=== PATIENT | female | born 1960 | race Caucasian/White ===

== ENCOUNTER 2024-01-27 14:41 | Outpatient (CLI) | payer BC | END 2024-01-27 14:42 | disposition home or self-care (01) | LOC: SCSRAD 14:41 | PROVIDERS: ATTEND Physician Assistant | DX: R05.3 Chronic cough (principal) | CPT/HCPCS: 71046 ==

== ENCOUNTER 2024-08-16 11:24 | Outpatient (CLI) | payer BC ==
[2024-08-16 13:09] LABS: #Basophils 0.05 10x3/uL (0.0-0.2); %Basophils 0.5 % (0.0-1.0); %Eosinophils 0.3 % (0.0-10.0); %Lymphocytes 20.1 % (21.0-51.0); %Monocytes 5.3 % (0.0-10.0); %Neutrophils 73.3 % (42.0-75.0); Hematocrit 42.8 % (36.0-47.0); Hemoglobin 14.6 g/dL (12.0-16.0); Mean Corpuscular HGB CONC 34.1 g/dL (32.0-36.0); Mean Corpuscular Hemoglobin 30.9 pg (27.0-31.0); Mean Corpuscular Volume 90.7 fL (78.0-98.0); Mean Platelet Volume 10.1 fL (7.4-10.4); Platelet Count 349 10x3/uL (130-400); RBC Distribution Width 12.5 % (11.5-14.5); Red Blood Cell (RBC) Count 4.72 mill/uL (4.20-5.40)
[2024-08-16 13:22] LABS: Hemoglobin A1c 6.7 % (4.0-6.0)
[2024-08-16 13:32] LABS: ALT (SGPT) 18 U/L (8-55); AST (SGOT) 18 U/L (5-34); Albumin 3.8 g/dL (3.4-4.8); Alkaline Phosphatase 124 U/L (40-110); Anion Gap 16 mmol/L (10-20); BUN (Urea Nitrogen) 16 mg/dL (9.8-20.1); Bilirubin, Total 0.5 mg/dL (0.2-1.2); Calc. Creatinine Clearance 0 mL/min (70-130); Calcium 10.2 mg/dL (7.8-10.44); Carbon Dioxide 26 mmol/L (23-31); Chloride 103 mmol/L (98-107); Estimated GFR 90; Globulin 3.8 g/dL (2.4-3.5); Glucose 162 mg/dL (80-115); Potassium 3.6 mmol/L (3.5-5.1); Protein, Total 7.6 g/dL (5.8-8.1); Sodium 141 mmol/L (136-145)
== END 2024-08-16 11:25 | disposition home or self-care (01) ==
LOC: LABBT 11:24
PROVIDERS: ATTEND Surgery
DX: Z01.818 Encounter for other preprocedural examination (principal); E66.01 Morbid (severe) obesity due to excess calories
CPT/HCPCS: 80053; 83036; 85025; 93005; 93010

== ENCOUNTER 2024-08-16 11:30 | Inpatient (IN) | payer BC ==
[2024-08-16 11:47] VITALS: BMI 36.7
[2024-08-20] MEDS ORDERED: CEFAZOLIN 2 GM VIAL ONE (07:20)
[2024-08-20] MEDS ORDERED: Heparin 5,000 UNITS/ML VIAL ONE (07:20)
[2024-08-20] MEDS ORDERED: fentaNYL PF 100 MCG/2 ML SYRINGE ONE (08:04)
[2024-08-20] MEDS ORDERED: PROPOFOL 20 ML ONE (08:04)
[2024-08-20] MEDS ORDERED: Rocuronium Bromide 10 MG/ML (10ML VIAL) ONE (08:05)
[2024-08-20] MEDS ORDERED: Lidocaine 1% PF 5 ML VIAL ONE (08:05)
[2024-08-20] MEDS ORDERED: Bupivacaine 0.25% HCL 30 ML VIAL ONE (08:29)
[2024-08-20] MEDS ORDERED: EPINEPHrine 1 MG/ML VIAL ONE (08:29)
[2024-08-20] MEDS ORDERED: PROPOFOL 40 ML ONE (08:43)
[2024-08-20] MEDS ORDERED: Albuterol HFA (OR) 200 PUFF INH ONE (08:43)
[2024-08-20] MEDS ORDERED: Ketorolac Tromethamine 30 MG (1 mL) VIAL ONE (09:14)
[2024-08-20] MEDS ORDERED: Dexamethasone 20 MG/5 ML VIAL ONE (09:14)
[2024-08-20] MEDS ORDERED: Labetalol HCl 100 MG/20 ML VIAL ONE (09:25)
[2024-08-20] MEDS ORDERED: D5 1/2 NS w/20 mEq KCL 1,000 ML IV SCH (10:22)
[2024-08-20] MEDS ORDERED: Ipratropium/Albuterol 3 ML NEB NEB PRN (10:27)
[2024-08-20] MEDS ORDERED: Dextrose 50% Abboject 50 ML SYRINGE SLOW IVP PRN (10:27)
[2024-08-20] MEDS ORDERED: Ondansetron PF 4 MG/2 ML Vial IVP PRN (10:27)
[2024-08-20] MEDS ORDERED: diphenhydrAMINE 50 MG/ML VIAL IVP PRN (10:27)
[2024-08-20] MEDS ORDERED: Glucagon 1 MG/ML KIT IM PRN (10:27)
[2024-08-20] MEDS ORDERED: Dextrose 5% in Water 1,000 ML IV PRN (10:27)
[2024-08-20] MEDS ORDERED: Promethazine HCl 25 MG/ML VIAL IM PRN (10:27)
[2024-08-20] MEDS ORDERED: Insulin Lispro 100 UNIT/ML 10 ML VIAL SC PRN (10:27)
[2024-08-20] MEDS ORDERED: oxyCODONE 5 MG TAB PO PRN (10:27)
[2024-08-20] MEDS ORDERED: Ondansetron PF 4 MG/2 ML Vial ONE (10:47)
[2024-08-20] MEDS ORDERED: fentaNYL 50 mcg/mL 1 mL Vial ONE ×2 (10:52→12:06)
[2024-08-20] MEDS: Lactated Ringer's 1,000 ML IV SCH (11:49)
[2024-08-20] MEDS ORDERED: hydrALAZINE 20 MG/ML VIAL ONE ×2 (12:01→12:03)
[2024-08-20] MEDS: hydrALAZINE 20 MG/ML VIAL SLOW IVP PRN (12:10)
[2024-08-20] MEDS ORDERED: Acetaminophen 500 MG TAB ONE (13:16)
[2024-08-20] MEDS: Acetaminophen 650 MG/20.3 ML UDCUP PO SCH (13:19)
[2024-08-20] MEDS: traMADol HCl 50 MG TAB PO PRN (15:02)
[2024-08-20] MEDS: fentaNYL 50 mcg/mL 1 mL Vial SLOW IVP PRN (16:09)
[2024-08-20] MEDS: Atorvastatin Calcium 40 MG TAB PO SCH (21:01)
[2024-08-21] MEDS: Levothyroxine Sodium 125 MCG TAB PO SCH (06:05)
[2024-08-21 06:34] LABS: #Basophils Less than 0.03 10x3/uL (0.0-0.2); #Eosinophils Less than 0.03 10x3/uL (0.0-0.7); %Basophils 0.2 % (0.0-1.0); %Eosinophils 0.1 % (0.0-10.0); %Lymphocytes 21.6 % (21.0-51.0); %Monocytes 7.8 % (0.0-10.0); %Neutrophils 69.9 % (42.0-75.0); Hematocrit 40.7 % (36.0-47.0); Hemoglobin 13.7 g/dL (12.0-16.0); Mean Corpuscular HGB CONC 33.7 g/dL (32.0-36.0); Mean Corpuscular Hemoglobin 30.6 pg (27.0-31.0); Mean Corpuscular Volume 91.1 fL (78.0-98.0); Mean Platelet Volume 10.3 fL (7.4-10.4); Platelet Count 346 10x3/uL (130-400); RBC Distribution Width 12.7 % (11.5-14.5); Red Blood Cell (RBC) Count 4.47 mill/uL (4.20-5.40)
[2024-08-21 06:55] LABS: Anion Gap 16 mmol/L (10-20); BUN (Urea Nitrogen) 9 mg/dL (9.8-20.1); Calc. Creatinine Clearance 139 mL/min (70-130); Calcium 9.5 mg/dL (7.8-10.44); Carbon Dioxide 25 mmol/L (23-31); Chloride 102 mmol/L (98-107); Estimated GFR 96; Glucose 122 mg/dL (80-115); Potassium 3.6 mmol/L (3.5-5.1); Sodium 139 mmol/L (136-145)
[2024-08-21 08:01] VITALS: BP 148/78; TEMP 98.4
[2024-08-21] MEDS: Enoxaparin 40 MG (0.4 mL) SYRINGE SC SCH (08:25)
[2024-08-21] MEDS: Pantoprazole 40 MG VIAL IVP SCH (08:26)
[2024-08-21] MEDS: BuPROPion XL 150 MG ER.TAB PO SCH (08:26)
[2024-08-21] MEDS: Losartan 25 MG TAB PO SCH (08:26)
[2024-08-21] MEDS: FLUoxetine HCl 20 MG CAP PO SCH (08:26)
== END 2024-08-21 11:20 | disposition home or self-care (01) | DRG 621 ==
LOC: SURG A 08-20 06:41 → EDSTATUS 08-20 11:30 → SURG A 08-20 14:07
PROVIDERS: ADMIT Surgery; ATTEND Surgery
PROC: 0DB64Z3 Excision of Stomach, Percutaneous Endoscopic Approach, Vertical (ICD-10-PCS; principal; 2024-08-20)
PROC: 8E0W4CZ Robotic Assisted Procedure of Trunk Region, Percutaneous Endoscopic Approach (ICD-10-PCS; 2024-08-20)
DX: E66.01 Morbid (severe) obesity due to excess calories (principal); E78.2 Mixed hyperlipidemia; E11.9 Type 2 diabetes mellitus without complications; I10 Essential (primary) hypertension; Z79.82 Long term (current) use of aspirin; Z79.899 Other long term (current) drug therapy; E03.9 Hypothyroidism, unspecified; Z98.890 Other specified postprocedural states; Z87.891 Personal history of nicotine dependence
CPT/HCPCS: 36415; 36416; 80048; 85025; 88307; J0171; J0360; J0665; J1100; J1644; J1650; J1885; J2405; J2470; J2704; J3010; J7120; S2900

== ENCOUNTER 2024-09-05 19:39 | Emergency (ER) | payer BC ==
[~2024-09-05 19:39] MED LIST: Iopamidol-370 76% 500 ML MDV (1 ML CHARGE) ONE
[2024-09-05] MEDS ORDERED: Acetaminophen 325 MG TAB ONE (20:11)
[2024-09-05] MEDS ORDERED: Sodium Chloride 0.9% 100 ML ONE (20:12)
[2024-09-05] MEDS ORDERED: Cefepime 2 GM VIAL ONE (20:12)
[2024-09-05] MEDS ORDERED: Vancomycin (BATCH) 2.5 GM in Premix 1 BAG IVPB SCH (20:15)
[2024-09-05 20:20] LABS: #Basophils Less than 0.03 10x3/uL (0.0-0.2); #Eosinophils Less than 0.03 10x3/uL (0.0-0.7); %Basophils 0.1 % (0.0-1.0); %Eosinophils 0.1 % (0.0-10.0); %Lymphocytes 6.4 % (21.0-51.0); %Monocytes 6.8 % (0.0-10.0); %Neutrophils 86.1 % (42.0-75.0); Hematocrit 35.7 % (36.0-47.0); Hemoglobin 12.1 g/dL (12.0-16.0); Mean Corpuscular HGB CONC 33.9 g/dL (32.0-36.0); Mean Corpuscular Hemoglobin 30.5 pg (27.0-31.0); Mean Corpuscular Volume 89.9 fL (78.0-98.0); Mean Platelet Volume 9.9 fL (7.4-10.4); Platelet Count 316 10x3/uL (130-400); RBC Distribution Width 12.8 % (11.5-14.5); Red Blood Cell (RBC) Count 3.97 mill/uL (4.20-5.40)
[2024-09-05 20:38] LABS: ALT (SGPT) 41 U/L (8-55); AST (SGOT) 38 U/L (5-34); Alkaline Phosphatase 135 U/L (40-110); Anion Gap 15 mmol/L (10-20); BUN (Urea Nitrogen) 7 mg/dL (9.8-20.1); Bilirubin, Total 0.6 mg/dL (0.2-1.2); Calc. Creatinine Clearance 0 mL/min (70-130); Calcium 9.4 mg/dL (7.8-10.44); Carbon Dioxide 24 mmol/L (23-31); Chloride 104 mmol/L (98-107); Estimated GFR 84; Globulin 4.4 g/dL (2.4-3.5); Glucose 164 mg/dL (80-115); Potassium 3.9 mmol/L (3.5-5.1); Protein, Total 7.4 g/dL (5.8-8.1); Sodium 139 mmol/L (136-145)
[2024-09-05] MEDS ORDERED: LORazepam 2 MG/ML SYR.(CARPUJECT) ONE (20:54)
[2024-09-05] MEDS ORDERED: Clindamycin/D5W 900 MG in Premix 1 BAG IVPB SCH (21:30)
[2024-09-06 01:10] LABS: Bacteria/HPF None Seen HPF (None Seen); Bilirubin Negative (Negative); Blood, Urine 1+ (Negative); CAUTI Indications for Culture Fever or rigors; Clarity Clear (Clear); Glucose, Urine (Dipstick) Normal (Negative); Ketone, Urine 10 mg/dL (Negative); Leukocyte 250 Leu/uL (Negative); Nitrite Negative (Negative); Protein, Urine (Dipstick) 10 mg/dL (Neg-Trace); Specific Gravity, Urine 1.037 (1.002-1.036); Squamous Epithelial 0-3 HPF (0-3); Urobilinogen Normal mg/dL (Less than 2); pH, Urine 5.5 (5.0-9.0)
[2024-09-06 01:11] LABS: Urine Culture Reflex No No
[2024-09-06] MEDS ORDERED: HYDROcodone/Acetaminophen 5/325 mg Tablet ONE (04:27)
[2024-09-06] MEDS ORDERED: Erythromycin Base 0.5% Oint 1 GM TUBE ONE (04:27)
== END 2024-09-06 08:46 | disposition short-term general hospital (02) ==
LOC: ERS 19:39
DX: A41.9 Sepsis, unspecified organism (principal); L03.116 Cellulitis of left lower limb; I10 Essential (primary) hypertension; E11.9 Type 2 diabetes mellitus without complications; E78.5 Hyperlipidemia, unspecified
CPT/HCPCS: 80048; 81001; 83605; 85025; 86140; 87040; 96361; 96365; 96366; 96375; J0692; J1885; J2060; J3370; J3490; Q9967

== ENCOUNTER 2025-05-27 23:32 | Emergency (ER) | payer BC ==
[2025-05-28] MEDS ORDERED: Ketorolac Tromethamine 30 MG (1 mL) VIAL ONE (01:45)
[2025-05-28] MEDS ORDERED: Methocarbamol 500 MG TAB ONE (01:45)
== END 2025-05-28 02:00 | disposition home or self-care (01) ==
LOC: ERS 23:32
DX: M17.11 Unilateral primary osteoarthritis, right knee (principal); E11.9 Type 2 diabetes mellitus without complications; I10 Essential (primary) hypertension
CPT/HCPCS: 96372; 99283; J1885

== ENCOUNTER 2025-07-31 03:49 | Emergency (ER) | payer BC | END 2025-07-31 06:48 | disposition home or self-care (01) | LOC: ERS 03:49 | DX: R21 Rash and other nonspecific skin eruption (principal); E11.9 Type 2 diabetes mellitus without complications; E78.00 Pure hypercholesterolemia, unspecified; I10 Essential (primary) hypertension | CPT/HCPCS: 99282 ==